=== PATIENT | female | born 1995 | race Caucasian/White ===

== ENCOUNTER 2019-01-23 06:38 | Emergency (ER) | payer MEDICAID ==
[~2019-01-23] VITALS: Ht 165.1 cm; Wt 69.0 kg
[2019-01-23] MEDS ORDERED: HYDROCODONE/ACETAMINOPHEN 5/325MG TABLET PO ONE (08:00)
[2019-01-23 15:49] VITALS: BP 93/61
== END 2019-01-23 16:30 | disposition home or self-care (01) ==
LOC: ER 06:38
DX: S80.11XA Contusion of right lower leg, initial encounter (principal); M25.552 Pain in left hip; M79.651 Pain in right thigh; M25.562 Pain in left knee; R07.89 Other chest pain; R03.0 Elevated blood-pressure reading, without diagnosis of hypertension; V49.49XA Driver injured in collision with other motor vehicles in traffic accident, initial encounter; Y93.89 Activity, other specified; V47.5XXA Car driver injured in collision with fixed or stationary object in traffic accident, initial encounter; Y92.411 Interstate highway as the place of occurrence of the external cause
CPT/HCPCS: 71045; 73010; 73522; 73552; 73562; 81025; 93005; 99284